=== PATIENT | male | born 1990 | race Caucasian/White ===

== ENCOUNTER 2022-07-27 00:13 | Emergency (ER) | payer BC ==
--- OUTSIDE RECORDS SUMMARY | 2022-07-27 00:19 | XMS REPORT | Continuity of Care Document ---
:1990 Author Organization [facility] t Address [address] [place] [address] Care Team Providers Name Role Phone RadhaFabby Attending Clinician Unavailable Physician, No Primary or Family Admitting Clinician Unavaila ble Payers Payer Name Policy Type Policy Number Effective Date Expiration Date S ource Problems This patient has no known problems. Allergies, Adverse Reactions, Alerts Allergy Allergy Status Severity Reaction(s) Onset Inactive Treating Comm ents Source Name Type Date Date Clinician No Known DA Active U [facility] Allergie 09-28 Clear s 00:00: Pereira 00 [facility] No Known DA Active U [facility] Contrast 10-08 Clear Allergie 00:00: Pereira s [facility] No Known DA Active U [facility] Drug 10-08 Clear Allergie 00:00: Pereira s [facility] No Known DA Active U 2006- [facility] Food - Clear Allergie 00:00: Pereira s [facility] No Known DA Active U 2006- [facility] Other - Clear Allergie 00:00: Pereira s [facility] Medications This patient has no known medications. Procedures This patient has no known procedures. Encounters Start End Encounter Admission Attending Care Care Encounter Source Date/Time Date/Time Type Type Clinicians Facility Department ID 2021-09-28 2021-09-28 Emergency EM Fabby Garcia [facility] PERS [id number] [facility] 06:55:00 08:05:00 40 [facility] Results Test Description Test Time Test Comments Results Result Comments Source CBC W/AUTO DIFF 2021-09-29 00:11:00 Test Item Value Reference Range Interpretation Comme nts WHITE BLOOD CELL (test code = WBC) 5.6 K/uL 3.5-11.0 N RED BLOOD CELL (test code = RBC) 4.85 M/uL 4.00-5.60 N HEMOGLOBIN (test code = HGB) 15.0 GM/DL 12.5-16.9 N HEMATOCRIT (test code = HCT) 43.0 % 40.0-54.0 N MEAN CELL VOLUME (test code = MCV) 88.7 fL 81.0-99.0 N MEAN CELL HGB (test code = MCH) 30.9 pg 27.0-31.0 N MEAN CELL HGB CONCETRATION (test code = MCHC) 34.9 GM/DL 33.0-37. 0 N RED CELL DISTRIBUTION WIDTH CV (test code = RDW) 13.7 % 11.5- 14.5 N PLATELET COUNT (test code = PLT) 148 K/mm3 150-400 L MEAN PLATELET VOLUME (test code = MPV) 12.9 FL 8.8-13.1 N NEUTROPHIL % (test code = NT%) 60.0 % 40.0-76.0 N LYMPHOCYTE % (test code = LY%) 34.8 % 15.0-40.0 N MIXED % (test code = MX%) 5.2 % 3.0-15.0 N NEUTROPHIL # (test code = NT#) 3.4 K/uL 1.8-7.6 N LYMPHOCYTE # (test code = LY#) 1.9 K/uL 1.0-3.8 N MIXED # (test code = MX#) 0.3 k/mm3 0.1-0.8 N DRUGS OF ABUSE [id number] 07:54:00 Test Item Value Reference Range Interpretation Comments UR COCAINE (test code = Negative NEGATIVE COCAU) UR CANNABINOIDS (test code Negative NEGATIVE = CANU) UR AMPHETAMINE (test code Negative NEGATIVE = AMPHU) UR BARBITURATE QUAL (test Negative NEGATIVE code = BARBQLU) UR BENZODIAZEPINE (test Negative NEGATIVE code = BENZU) UR OPIATES (test code = Negative NEGATIVE OPIU) URN TRICYCLICS (test code Negative NEGATIVE = TRICYCURN) URN METHADONE (test code = Negative NEGATIVE P erformed by METHAURN) certified opera tor at [facility] URN METHAMPHETAMINE (test Negative NEGATIVE code = METHAMPURN) UA DIPSTICK [id number] 07:43:00 Test Item Value Reference Range Interpretation Comments UA GLUCOSE DIPSTIC POC NEGATIVE NEGATIVE (test code = GLUUP) UA BILIRUBIN DIPSTICK NEGATIVE NEGATIVE (test code = BILU) UA KETONE DIPSTICK POC NEGATIVE NEGATIVE (test code = KETUP) UA SPECIFIC GRAVITY (test 1.010 1.005-1.030 N code = SGU) UA BLOOD DIPSTIC POC NEGATIVE NEGATIVE Perform ed by (test code = BLUP) certified chip bin operator at [facility] UA PH DIPSTIC POC (test 7 5.0-7.0 N code = PHUP) UA PROTEIN DIPSTICK POC NEGATIVE NEGATIVE (test code = DPROUP) UA UROBILINIOGEN QUAL NORMAL 0.2-1.0 (test code = UROQL) UA NITRITE DIPSTICK POC NEGATIVE Negative (test code = NITUP) UA LEUKOCYTE ESTERASE W Negative NEGATIVE REFLEX (test code = LEUUR) LIVER [id number] 07:31:00 Test Item Value Reference Range Interpretation Comments TOTAL PROTEIN (test code 6.6 GM/DL 5.0-8.0 N Per formed by = PROT) certified opera tor at [facility] ALBUMIN (test code = 3.9 g/dL 3.4-5.0 N ALB) BILIRUBIN TOTAL (test 0.9 MG/DL 0.0-1.0 N code = BILT) SGOT/AST (test code = 30 IUnit/L 15-37 N AST) SGPT/ALT (test code = 29 IUnit/L 30-65 L ALT) GAMMA GLUTAMYL 18 UNITS/L 5-85 N TRANSPEPTIDASE (test code = GGT) ALKALINE PHOSPHATASE 66 IUNIT/L 20-125 N TOTAL (test code = ALKP) AMYLASE (test code = 33 UNITS/L 25-125 N ADIEL) BASIC METABOLIC [id number] 07:24:00 Test Item Value Reference Range Interpretation Comments SODIUM (test code = NA/ABG) 143 MEQ/L 134-147 N POTASSIUM (test code = K/ABG) 3.7 MEQ/L 3.4-5.0 N CHLORIDE (test code = CL/ABG) 106 MEQ/L 100-108 N CREATININE ABG (test code = 1.2 mg/dL 0.8-1.3 N CREAABG) POC IONIZED CALCIUM (test code = 1.14 MMOL/L 1.12-1.32 N POCCA) POC GLUCOSE (test code = POCGLU) 105 MG/DL - CT HEAD/BRAIN W/O [id number] 00:00:00 [facility] 1990 Sex: MName: TRACI COLEMAN [facility] : 1990 Age/S: 31 / M [address] [facility] Unit #: [id number] Loc: [place] [address] Phys: Fabby Garcia MD Acct: [id number] Dis Date: Status: REG ER PHONE #: Exam Date: 09/28/2021 0725 FAX #: Reason: paresthesias EXAMS: CPT CODE: [id number] CT HEAD/BRAIN W/O CONT [id number] PROCEDURE INFORMATION: Exam: CT Head Without Contrast Exam date and time: 09/28/2021 7:15AM Age: 31 years old Clinical indication: Numbness / parasthesia; Bilateral; Additional info: Paresthesias TECHNIQUE: Imaging protocol: Computed tomography of the head without contrast. Radiation optimization: All CT scans at this facility use at least one of these dose optimization techniques: automated exposure control; mA and/or kV adjustment per patient size (includes targeted exams where dose ismatched to clinical indication); or iterative reconstruction. COMPARISON: No relevant prior studies available. FINDINGS: Brain: No cerebral mass effect, midline shift, acute edema, or acute hemorrhage.Cerebral ventricles: No ventriculomegaly. Paranasal sinuses: Bilateral maxillary sinus polyps or mucous retention cysts. Mastoid air cells: Visualized mastoid air cells are well aerated. Bones/joints: Unremarkable. No acute fracture. Soft tissues: Unremarkable. IMPRESSION: No acute intracranial process. at 0742 Reported and signed by: Ori Medrano M.D. CC: Fabby Garcia MD Technologist:Anjali Cohen, RT(R)(CT) CTDI: DLP: Trnscb Date/Time: 09/28/2021 (741) [email or web address] Orig Print D/T: S: 09/28/2021 (5042) PAGE 1 Signed Report
[2022-07-27] MEDS ORDERED: ASPIRIN 81 MG CHEWABLE TABLET ONE (02:20)
[2022-07-27 02:55] LABS: Absolute Lymphocytes (CBC) 2.2 K/uL (0.7-4.9); Hematocrit 45.3 % (39.6-49.0); Lymphocytes % 38.7 % (15.3-44.8); MCV 89.8 fL (80-100); MPV 9.6 fL (7.6-11.3); RBC Red Blood Cell Count 5.04 M/uL (4.33-5.43)
[2022-07-27 02:57] LABS: Protime INR 0.97
[2022-07-27 03:14] LABS: Bilirubin Direct 0.2 mg/dL (0-0.2); Bilirubin Total 1.1 mg/dL (0.2-1.0); Magnesium 2.5 mg/dL (1.6-2.4); Potassium 4.2 mmol/L (3.5-5.1); Troponin High Sensitivity 6.8 pg/mL (<58.9)
--- NOTE | 2022-07-27 03:45 | EDPHYS ---
Physician Documentation [facility] Name: Srinivas Alfaro Age: 32 yrs Sex: Male : 1990 Arrival Date: 07/27/2022 Time: 00:19 Bed 4 Private MD: ED Physician Hilario Goetz HPI: 07/27 01:10 This 32 yrs old Male presents to ER via Ambulatory with complaints of Chest Pain, cp Shortness Of Breath. 01:10 The patient or guardian reports chest pain that is located primarily in the anterior cp chest wall, left. 01:10 The pain does not radiate. Associated signs and symptoms: Pertinent positives: cp shortness of breath. The chest pain is described as sharp. Duration: The patient or guardian reports a single episode, that is still ongoing, but improving. 01:10 Severity of pain: in the emergency department the pain has improved moderately. cp Historical: - Allergies: 00:29 No Known Allergies; kl - PMHx: 00:29 None; kl - PSHx: 00:29 None; kl - Immunization history:: Adult Immunizations not up to date. - Social history:: Smoking status: Patient reports the use of cigarette tobacco products, smokes one pack cigarettes per day. ROS: 01:15 Constitutional: Negative for body aches, chills, fever, poor PO intake. cp 01:15 Eyes: Negative for injury, pain, redness, and discharge. cp 01:15 ENT: Negative for drainage from ear(s), ear pain, sore throat, difficulty swallowing, difficulty handling secretions. 01:15 Cardiovascular: Positive for chest pain, of the anterior aspect of left side chest, Negative for edema, palpitations. 01:15 Respiratory: Positive for shortness of breath, Negative for cough, wheezing. 01:15 Abdomen/GI: Negative for abdominal pain, nausea, vomiting, and diarrhea, constipation. 01:15 Back: Negative for pain at rest, pain with movement. 01:15 Neuro: Negative for altered mental status, dizziness, headache, syncope, weakness. 01:15 All other systems are negative. Exam: 00:45 ECG was reviewed by the Attending Physician. cp 01:20 Constitutional: The patient appears in no acute distress, alert, awake, comfortable, cp non-diaphoretic, non-toxic, well developed, well nourished. 01:20 Head/Face: Normocephalic, atraumatic. cp 01:20 Eyes: Periorbital structures: appear normal, Conjunctiva: normal, no exudate, no injection, Sclera: no appreciated abnormality, Lids and lashes: appear normal, bilaterally. 01:20 ENT: External ear(s): are unremarkable, Nose: is normal, Mouth: Lips: moist, Oral mucosa: pink and intact, moist, Posterior pharynx: is normal, airway is patent, no erythema, no exudate, Voice: is normal. 01:20 Neck: ROM/movement: is normal, is supple, without pain, no range of motions limitations. 01:20 Chest/axilla: Inspection: normal, Palpation: is normal, no crepitus, no tenderness. 01:20 Cardiovascular: Rate: normal, Rhythm: regular. 01:20 Respiratory: the patient does not display signs of respiratory distress, Respirations: normal, no use of accessory muscles, no retractions, labored breathing, is not present, Breath sounds: are clear throughout, no decreased breath sounds, no stridor, no wheezing. 01:20 Abdomen/GI: Inspection: abdomen appears normal, Palpation: abdomen is soft and non-tender, in all quadrants. 01:20 Back: pain, is absent, ROM is normal. 01:20 Neuro: Orientation: to person, place \T\ time. Mentation: is normal, Motor: moves all fours, strength is normal, Sensation: is normal. Vital Signs: 00:27 BP 118 / 80; Pulse 63; Resp 18; Temp 98(TE); Pulse Ox 97% on R/A; Weight 83.91 kg (R); kl Height 5 ft. 11 in. (180.34 cm); Pain 1/10; 02:31 BP 111 / 80; Pulse 60; Resp 16; Pulse Ox 98% on R/A; ll3 00:27 Body Mass Index 25.80 (83.91 kg, 180.34 cm) kl MDM: 00:45 Patient medically screened. cp 02:00 Differential diagnosis: acute myocardial infarction, acute pericarditis, anxiety, chest cp wall pain, pericarditis, pleurisy, pneumonia, pneumothorax, pulmonary embolus, thoracic aortic disection. 03:45 Data reviewed: vital signs, nurses notes, lab test result(s), EKG, radiologic studies, cp plain films. 03:45 Consideration of Admission/Observation Escalation of care including cp admission/observation considered. I considered the following discharge prescriptions or medication management in the emergency department Medications were administered in the Emergency Department. See MAR. Independent interpretation of the following test(s) in the Emergency Department EKG: See my EKG interpretation above X-Ray: My interpretation is chest xray negative for infiltrates. Test considered but Not performed: CT: chest for PE. Counseling: I had a detailed discussion with the patient and/or guardian regarding: the historical points, exam findings, and any diagnostic results supporting the discharge/admit diagnosis, lab results, radiology results, the need for outpatient follow up, a family practitioner, to return to the emergency department if symptoms worsen or persist or if there are any questions or concerns that arise at home. Response to treatment: the patient's symptoms have markedly improved after treatment, and as a result, I will discharge patient. Special discussion: Based on the patient's history, exam, and Dx evaluation, there is no indication for emergent intervention or inpatient Tx. It is understood by the patient/guardian that if the Sx's persist or worsen they need to return immediately for re-evaluation. 07/27 01:19 Order name: Basic Metabolic Panel cp 07/27 01:19 Order name: CBC with Diff cp 07/27 01:19 Order name: D-Dimer cp 07/27 01:19 Order name: LFT's cp 07/27 01:19 Order name: Magnesium cp 07/27 01:19 Order name: NT PRO-BNP cp 07/27 01:19 Order name: PT-INR cp 07/27 01:19 Order name: Troponin HS cp 07/27 02:57 Order name: Protime (+INR); Complete Time: 03:40 EDMS 07/27 02:57 Order name: D-Dimer; Complete Time: 03:40 EDMS 07/27 03:01 Order name: CBC with Automated Diff; Complete Time: 03:40 EDMS 07/27 03:15 Order name: Basic Metabolic Panel; Complete Time: 03:40 EDMS 07/27 03:40 Interpretation: Normal except: CL 111; GFR 89. cp 07/27 03:15 Order name: Liver (Hepatic) Function; Complete Time: 03:40 EDMS 07/27 03:40 Interpretation: Normal except: BILIT 1.1. cp 07/27 03:15 Order name: Troponin High Sensitivity; Complete Time: 03:40 EDMS 07/27 03:40 Interpretation: Troponin HS 6.8; Reviewed. cp 07/27 01:07 Order name: EKG; Complete Time: 01:07 cp 07/27 01:07 Order name: EKG - Nurse/Tech; Complete Time: 02:00 cp 07/27 01:19 Order name: XRAY Chest (1 view) cp 07/27 01:19 Order name: Cardiac monitoring; Complete Time: 02:30 cp 07/27 01:19 Order name: IV Saline Lock; Complete Time: 02:30 cp 07/27 01:19 Order name: Labs collected and sent; Complete Time: 02:30 cp 07/27 01:19 Order name: O2 Per Protocol; Complete Time: 02:30 cp 07/27 01:19 Order name: O2 Sat Monitoring; Complete Time: 02:30 cp 07/27 03:15 Order name: NT PRO-BNP; Complete Time: 03:40 EDMS 07/27 03:15 Order name: Magnesium; Complete Time: 03:40 EDMS 07/27 03:40 Interpretation: MG 2.5; Reviewed. cp EC:45 Rate is 68 beats/min. Rhythm is regular. [place] interval is normal. QRS interval is cp prolonged at 106 msec. QT interval is normal. T waves are Inverted in leads III, aVR. Interpreted by me. Reviewed by me. Administered Medications: 02:30 Not Given (Physician Discretion): Aspirin Chewable Tablet 324 mg PO once; 81 mg tablets ll3 x 4 02:30 Drug: Aspirin 162 mg Route: PO; ll3 Disposition Summary: 07/27/22 03:45 Discharge Ordered Location: Home cp Problem: new cp Symptoms: have improved cp Condition: Stable cp Diagnosis - Chest pain, unspecified cp Followup: cp - With: Private Physician - When: 2 - 3 days - Reason: Recheck today's complaints Discharge Instructions: - Discharge Summary Sheet cp - Nonspecific Chest Pain, Adult cp - Aspirin and Your Heart cp Forms: - Medication Reconciliation Form cp - Thank You Letter cp - Antibiotic Education cp - Prescription Opioid Use cp Prescriptions: - Diclofenac Sodium 75 mg Oral Tablet Sustained Release - take 1 tablet by ORAL route 2 times per day; 30 tablet; Refills: 0, Product cp Selection Permitted Signatures: Dispatcher [employer] Perla Cast, RN RN Hilario Gong PA PA cp Loubet, Lynsea RN RN ll3
--- NOTE | 2022-07-27 03:45 | ER ---
Nurse's Notes [facility] Name: Srinivas Alfaro Age: 32 yrs Sex: Male : 1990 Arrival Date: 07/27/2022 Time: 00:19 Bed 4 Private MD: Diagnosis: Chest pain, unspecified Presentation: 07/27 00:27 Chief complaint: Patient states: woke up with sharp pain to upper left side of chest kl with some SOB reports pain decreased at this time 1. Coronavirus screen: Vaccine status: Patient reports being unvaccinated. Initial Sepsis Screen: Does the patient meet any 2 criteria? No. Patient's initial sepsis screen is negative. Does the patient have a suspected source of infection? No. Patient's initial sepsis screen is negative. Risk Assessment: Do you want to hurt yourself or someone else? Patient reports no desire to harm self or others. Onset of symptoms. 00:27 Method Of Arrival: Ambulatory kl 00:27 Acuity: JANAY 3 kl 04:11 Ebola Screen: Patient negative for fever greater than or equal to 101.5 degrees kl Fahrenheit, and additional compatible Ebola Virus Disease symptoms. Triage Assessment: 00:29 General: Appears in no apparent distress. comfortable, Behavior is calm, cooperative. kl Pain: Complains of pain in left clavicle and anterior aspect of left upper chest Pain currently is 1 out of 10 on a pain scale. at worst was 6 out of 10 on a pain scale. Cardiovascular: Reports chest pain, Heart tones S1 S2. Historical: - Allergies: 00:29 No Known Allergies; kl - PMHx: 00:29 None; kl - PSHx: 00:29 None; kl - Immunization history:: Adult Immunizations not up to date. - Social history:: Smoking status: Patient reports the use of cigarette tobacco products, smokes one pack cigarettes per day. Screenin:31 [facility] ED Fall Risk Assessment (Adult) History of falling in the last 3 months, ll3 including since admission No falls in past 3 months (0 pts) Confusion or Disorientation No (0 pts) Intoxicated or Sedated No (0 pts) Impaired Gait No (0 pts) Mobility Assist Device Used No (0 pt) Altered Elimination No (0 pt) Score/Fall Risk Level 0 - 2 = Low Risk Oriented to surroundings, Maintained a safe environment, Educated pt \T\ family on fall prevention, incl call for assistance when getting out of bed. Abuse screen: Denies threats or abuse. Denies injuries from another. Nutritional screening: No deficits noted. Tuberculosis screening: No symptoms or risk factors identified. Assessment: 02:31 General: Appears in no apparent distress. uncomfortable, Behavior is calm, cooperative. ll3 Pain: Complains of pain in anterior aspect of left upper chest Pain radiates to left clavicle Pain currently is 1 out of 10 on a pain scale. at worst was 7 out of 10 on a pain scale. Quality of pain is described as pressure, Pain began 2-3 days ago. Is continuous. Cardiovascular: Patient's skin is warm and dry. Rhythm is sinus rhythm Chest pain is described as mild, quality is pressure, is located in left anterior chest wall began 2-3 days ago. Respiratory: Reports shortness of breath Respiratory effort is even, unlabored, Respiratory pattern is regular, symmetrical. Derm: Skin is pink, warm \T\ dry. 04:10 Reassessment: Patient appears in no apparent distress at this time. Patient and/or kl family updated on plan of care and expected duration. Pain level reassessed. Patient is alert, oriented x 3, equal unlabored respirations, skin warm/dry/pink. Patient states feeling better. Patient states symptoms have improved. Vital Signs: 00:27 BP 118 / 80; Pulse 63; Resp 18; Temp 98(TE); Pulse Ox 97% on R/A; Weight 83.91 kg (R); Height 5 ft. 11 in. (180.34 cm); Pain 06/22; 02:31 BP 111 / 80; Pulse 60; Resp 16; Pulse Ox 98% on R/A; ll3 00:27 Body Mass Index 25.80 (83.91 kg, 180.34 cm) ED Course: 00:19 Patient arrived in ED. [email or web address] 00:29 Triage completed. 00:45 Hilario Maldonado PA is PHCP. 00:45 Hilario Goetz MD is Attending Physician. 02:30 Initial lab(s) drawn, by me, sent to lab. Inserted saline lock: 22 gauge in right ll3 antecubital area, using aseptic technique. Blood collected. Patient maintains SpO2 saturation greater than 95% on room air. 04:10 No provider procedures requiring assistance completed. IV discontinued, intact, kl bleeding controlled, No redness/swelling at site. Pressure dressing applied. 04:10 Patient has correct armband on for positive identification. Client placed on continuous kl cardiac and pulse oximetry monitoring. NIBP monitoring applied. 04:11 EKG completed in triage. Results shown to MD. av Administered Medications: 02:30 Not Given (Physician Discretion): Aspirin Chewable Tablet 324 mg PO once; 81 mg tablets ll3 x 4 02:30 Drug: Aspirin 162 mg Route: PO; ll3 Medication: 02:31 VIS not applicable for this client. ll3 Outcome: 03:45 Discharge ordered by MD. greg 04:11 Discharged to home ambulatory. kl 04:11 Condition: good 04:11 Discharge instructions given to patient, Instructed on discharge instructions, follow up and referral plans. medication usage, Demonstrated understanding of instructions, follow-up care, medications, Prescriptions given X 1. 04:11 Patient left the ED. Signatures: Perla Payan RN RN Hilario Gong PA PA cp Jeffries, Jennifer [email or web address] Hever Chairez RN RN ll3
[2022-07-27 04:42] VITALS: TEMP 98
[2022-07-27 04:48] VITALS: BP 111/80; O2SAT 98
--- NOTE | 2022-07-27 17:09 | EKG ---
Test Date: 2022-07-27 Test Time: 00:38:32 Limited Radiology Technician: MONTY MEASUREMENT RESULTS: Intervals: Rate: 68 AR: 170 QRSD: 106 QT: 400 QTc: 425 Beaman: P: 65 AR: 170 QRS: 35 T: 18 INTERPRETIVE STATEMENTS: Normal sinus rhythm with sinus arrhythmia Normal ECG Electronically Signed On 07-27-22 17:08:22 AMMONIUM SULFATE OPERATOR by Emigdio Jamison
== END 2022-07-27 04:11 | disposition home or self-care (01) ==
LOC: ER 00:13
DX: R07.89 Other chest pain (principal); F17.210 Nicotine dependence, cigarettes, uncomplicated
CPT/HCPCS: 36415; 80048; 80076; 83735; 83880; 84484; 85025; 85379; 85610; 93005

== ENCOUNTER 2023-12-10 04:36 | Emergency (ER) | payer BC ==
--- OUTSIDE RECORDS SUMMARY | 2023-12-10 04:39 | XMS REPORT | Continuity of Care Document ---
Author Name Unknown Address [address] [facility] [address] [place] [address] [facility] thconnect Address [address] [facility] 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 Name Role Phone PCP, PATIENT DOES NOT HAVE A Primary Care Physic vicki Unavailable Tyrell Ennis Attending Clinician [phone] TYRELL JAMISON Attending Clinician Unavailable Unknown, Attending Attending Clinician Unavailab Fabby Cody Attending Clinician Unavailable Physician, No Primary or Family Admitting Clinic vicki Unavailable Payers Payer Name Policy Type Policy Number Effective Date Expirati on Date Source Allergies, Adverse Reactions, Alerts Allergy Name Allergy Type Status Severity Reaction(s) Onset Date Inactive Date Treating Clinician Comments Source No Known Allergie s DA Active U 09-28 00:00: 00 [facility] No Known Contrast Allergie s DA Active U 10-08 00:00: 00 [facility] No Known Drug Allergie s DA Active U 10-08 00:00: 00 [facility] No Known Food Allergie s DA Active U 10-08 00:00: 00 [facility] No Known Other Allergie s DA Active U 10-08 00:00: 00 [facility] NO KNOWN ALLERGIE S Drug Class Active [facility] Social History Social Habit Start Date Stop Date Quantity Comments Source History of tobacco use Snuff User [facility] of Social function 2018-10-28 00:00:00 2018-10-28 00:00:00 [facility] Tobacco use and exposure 2018-10-28 00:00:00 2018-10-28 00:00:00 User of smokeless tobacco [facility] Sex assigned at 1990 00:00:00 1990 00:00:00 [facility] Smoking Status Start Date Stop Date Source Never smoked tobacco [facility] Medications Ordered Medication Name Filled Medication Name Start Date Stop Date Current Medication? Ordering Clinician Indication Dosage Frequency Signature (SIG) Comments Components Source ibuprofen (IBU) tablet 800 mg 12-05 22:30: 00 12-05 21:53 :00 No [id number] 800mg 800 mg, Oral, ONCE, 1 dose, On Tue12/06/23 at 1730, Routine [facility] albuterol 90 mcg/actuati on inhaler 12-05 00:00: 00 Yes [id number] 2{puff} Inhale 2 Puffs every 6 (six) hours as needed for Wheezing. [facility] promethazin e-dextromet horphan 6.25-15 mg/5 mL syrup 12-05 00:00: 00 12-16 04:59 :00 Yes [id number] 10mL Take 10 mL by mouth 4 (four) times daily for 10 days. [facility] Vital Signs Vital Name Observation Time Observation Value Comments S alecia Systolic blood pressure 2023-12-06 21:24:00 125 mm[Hg] [facility] Diastolic blood pressure 2023-12-06 21:24:00 76 mm[Hg] [facility] Heart rate 2023-12-06 21:24:00 102 /min [facility] Body temperature 2023-12-06 21:24:00 38.33 Laurie [facility] Respiratory rate 2023-12-06 21:24:00 17 /min [facility] Body height 2023-12-06 21:24:00 180.3 cm [facility] Body weight 2023-12-06 21:24:00 85.503 kg [facility] BMI 2023-12-06 21:24:00 26.29 kg/m2 [facility] Oxygen saturation in Arterial blood by Pulse oximetry 2023-12-06 21:24:00 97 /min [place] [facility] Procedures Procedure Date / Time Performed Performing Clinicia n Source XR CHEST 2 VW 2023-12-06 22:06:45 Tyrell Jamison [facility] POCT SARS-COV-2 ANTIGEN (BINAX NOW) 2023-12-06 21:46:00 Tyrell Jamison [facility] Encounters Start Date/Time End Date/Time Encounter Type Admission Type Attending Clinicians Care Facility Care Department Encounter ID Source 2023-12-06 16:45:14 2023-12-06 23:59:00 Hospital Encounter Tyrell Jamison [facility] [id number] [facility] 2023-12-06 16:00:00 2023-12-06 17:01:02 Outpatient R TYRELL JAMISON [facility] [id number] [facility] 2023-12-06 16:00:00 2023-12-06 16:20:00 Urgent Care Tyrell Jamison, Attending [facility] [id number] [facility] 2021-09-28 06:55:00 2021-09-28 08:05:00 Emergency EM [employer] [facility] [id number] 40 [facility] Results Test Description Test Time Test Comments Results Resul t Comments Source XR CHEST 2 VW 2023-11-13 5 22:19:15 EXAM:XR CHEST 2 VW HISTORY: 33 years-old Male; Indication for study: cough x 7 months andfever started today COMPARISON: None TECHNIQUE: Frontal and lateral chest radiographs were obtained. FINDINGS: Lungs/Pleura: Adequate lung volume. The lungs are clear with no focalconsolidation. There is no pleural effusion or pneumothorax. Heart/Mediastinum: The cardiomediastinal silhouette is normal. ? Bones and soft tissues: No acute abnormality detected. [facility] [id number] 00:11:00* Test Item Value Reference Range Interpretation Comme [...] pg 27.0-31.0 N MEAN CELL HGB CONCETRATION ( test code = MCHC) 34.9 GM/DL 33.0-37.0 N RED CELL DISTRIBUTION WIDTH CV (test code = RDW) 13.7 % 11.5-14.5 N PLATELET COUNT (test code = PLT) 148 K/mm3 150-400 L MEAN PLATELET VOLUME (test c ode = MPV) 12.9 FL 8.8-13.1 N NEUTROPHIL [...] 0.3 k/mm3 0.1-0.8 N DRUGS OF ABUSE [id number] 07:54:00* Test Item Value Reference Range Interpretation Comme nts UR COCAINE (test code = COCAU) Negative NEGATIVE UR CANNABINOIDS (test code = CANU) Negative NEGATIVE UR AMPHETAMINE (test code = AMPHU) Negative NEGATIVE UR BARBITURATE QUAL (test code = BARBQLU) Negative NEGATIVE UR BENZODIAZEPINE (test code = BENZU) Negative NEGATIVE UR OPIATES (test code = OPIU) Negative NEGATIVE URN TRICYCLICS (test code = TRICYCURN) Negative NEGATIVE URN METHADONE (test code = METHAURN) Negative NEGATIVE Performed by certified die stamping press operator at [facility] URN METHAMPHETAMINE (test code = METHAMPURN) Negative NEGATIVE UA DIPSTICK [id number] 07:43:00* Test Item Value Reference Range Interpretation Comme nts UA GLUCOSE DIPSTIC POC (test code = GLUUP) NEGATIVE NEGATIVE UA BILIRUBIN DIPSTICK (test code = BILU) NEGATIVE NEGATIVE UA KETONE DIPSTICK POC (test code = KETUP) NEGATIVE NEGATIVE UA SPECIFIC GRAVITY (test code = SGU) 1.010 1.005-1.030 N UA BLOOD DIPSTIC POC (test code = BLUP) NEGATIVE NEGATIVE Performed by certified die stamping press operator at [facility] UA PH DIPSTIC POC (test code = PHUP) 7 5.0-7.0 N UA PROTEIN DIPSTICK POC (test code = DPROUP) NEGATIVE NEGATIVE UA UROBILINIOGEN QUAL (test code = UROQL) NORMAL 0.2-1.0 UA NITRITE DIPSTICK POC (test code = NITUP) NEGATIVE Negative UA LEUKOCYTE ESTERASE W REFLEX (test code = LEUUR) Negative NEGATIVE LIVER [id number] 07:31:00* Test Item Value Reference Range Interpretation Comme nts TOTAL PROTEIN (test code = PROT) 6.6 GM/DL 5.0-8.0 N Performed by certified die stamping press operator at [facility] ALBUMIN (test code = ALB) 3.9 g/dL 3.4-5.0 N BILIRUBIN TOTAL (test code = BILT) 0.9 MG/DL 0.0-1.0 N SGOT/AST (test code = AST) 30 IUnit/L 15-37 N SGPT/ALT (test code = ALT) 29 IUnit/L 30-65 L GAMMA GLUTAMYL TRANSPEPTIDASE (test code = GGT) 18 UNITS/L 5-85 N ALKALINE PHOSPHATASE TOTAL (test code = ALKP) 66 IUNIT/L 20-125 N AMYLASE (test code = ADIEL) 33 UNITS/L 25-125 N BASIC METABOLIC [id number] 07:24:00* Test Item Value Reference Range Interpretation Comme nts SODIUM (test code = NA/ABG) 143 MEQ/L 134-147 N POTASSIUM (test code = K/ABG) 3.7 MEQ/L 3.4-5.0 N CHLORIDE (test code = CL/ABG) 106 MEQ/L 100-108 N CREATININE ABG (test code = CREAABG) 1.2 mg/dL 0.8-1.3 N POC IONIZED CALCIUM (test co de = POCCA) 1.14 MMOL/L 1.12-1.32 N POC GLUCOSE (test code = POCGLU) 105 MG/DL - CT HEAD/BRAIN W/O [id number] 00:00:00 [facility] : 1990 Sex: M Name: TRACI COLEMAN FSED : 1990 Age/S: 31 / M [address] [facility] Unit #: [id number] Loc: [place] [address] Phys: Fabby Garcia MD Acct: [id number] Dis Date: Status: REG ER PHONE #: Exam Date: 09/28/2021 8922 FAX #: Reason: paresthesias EXAMS: CPT CODE: [id number] CT HEAD/BRAIN W/O CONT 52555 PROCEDURE INFORMATION: Exam: CT Head Without Contrast Exam date and time: 09/28/2021 7:15 AM Age: 31 years old Clinical indication: Numbness / parasthesia; Bilateral; Additional info:Paresthesias TECHNIQUE: Imaging protocol: Computed tomography of the head without contrast. Radiation optimization: All CT scans at this facility use at least one of these dose optimization techniques: automated exposure control; mA and/or kV adjustment per patient size (includes targeted exams where dose is matched to clinical indication); or iterative reconstruction. COMPARISON: No relevant prior studies available. FINDINGS: Brain: No cerebral mass effect, midline shift, acute edema, or acutehemorrhage. Cerebral ventricles: No ventriculomegaly. Paranasal sinuses: Bilateral maxillary sinus polyps or mucous retention cysts. Mastoid air cells: Visualized mastoid air cells are well aerated. Bones/joints: Unremarkable. No acute fracture. Soft tissues: Unremarkable. IMPRESSION: No acute intracranial process. at 0742 Reported and signed by: Ori Medrano M.D. CC: Fabby Garcia MD Technologist:Anjali Cohen, RT(R)(CT) CTDI: DLP: Trnscb Date/Time: 09/28/2021 (741) [id number] Orig Print D/T: S: 09/28/2021 (42) PAGE 1Signed Report Notes Date/Time Note Provider Source 2021-09-28 07:20:00 [id number]:20:00 [facility] ([facility])EMERGENCY PROVIDER REPORTREPORT#:[id number] REPORT STATUS: SignedDATE:09/28/21 TIME: 719 PATIENT: TRACI COLEMAN UNIT #: [id number]#: [id number] ROOM/BED:AGE: 31 SEX: M PCP PHYS: No Primary or Family PhysicianSERVICE AUTHOR: Fabby Garcia MD * ALL edits or amendments must be made on the electronic/computer document * HPI-General Illness GeneralConfirmed Patient YesInitial Greet Date/Time 09/28/21 0708PCPno PMD PresentationChief Complaint Paresthesias Free Text HPI NotesFree Text HPI Notes31 yo M w/no PMH p/w paresthesias. 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 He notes the presence of tingling all over his body. His symptoms began while driving home from his overnight shift at work, and he denies hyperventilating prior to onset. He also denies unilateral limb weakness, vision/speech changes, fever, chest pain, shortness of breath, cough, abdominal pain, nausea/vomiting, melena, hematuria, hematochezia, lower extremity swelling or calf pain. Review of Systems ROS StatementsAll systems rev neg except as marked. Past Medical History - AdultStated Complaint tingling all over arms legs face , light headedAllergiesCoded Allergies:No Known Allergies (09/28/21) Home MedicationsReported Medications[zoloft ] Calculated Suicide Risk (nurs) No riskPt reports no significant: Past medical historyAlcohol Use Alcohol use (rare EtOH use)Drug Use Denies recreational drugsSmoking status: Smoking status for patients 13 years old or older: Current every day smoker (1 pack per day) Physical Exam Vital SignsVital SignsFirst Documented: Result Date Time Pulse Ox 98 09/28 0658 B/P 128/80 09/28 0658 B/P Mean 96 09/28 0658 O2 Delivery Room air 09/28 0658 Temp 36.7 09/28 0658 Pulse 77 09/28 0658 Resp 16 09/28 0658 Last Documented: Result Date Time Pulse Ox 98 09/28 0658 B/P 128/80 09/28 0658 B/P Mean 96 09/28 0658 O2 Delivery Room air 09/28 0658 Temp 36.7 09/28 0658 Pulse 77 09/28 0658 Resp 16 09/28 0658 Review of Vital Signs Reviewed Physical ExamGeneral/Const General/Const Awake, Alert, No acute distress Text/Dict NotesAfebrile, lying comfortably on stretcher in NAD, nontoxic, appears well clinicallyMS Head Head Atraumatic, NormocephalicEars/Nose/Throat Ears/Nose/Throat Airway patentMS Neck Neck Supple, No swellingResp/Chest Respiratory/Chest Breath sounds NL, No respiratory distress, No rales, No rhonchi, No wheezingCardiovascular Cardiovascular Heart rate NL, Regular rhythm, Heart sounds NLAbdomen/GI Abdomen/GI Soft, Non-tender, No distentionMS Back Back No midline vertebral tend, No CVA tendernessMS Lower Extrem Lower Ext/Pelvis/MS No swelling, Non-tenderSkin Skin Warm, DryNeurologic Neurologic Oriented X3, Speech NL Text/Dict Notes5/5 motor and sensory function in all extremities, claim examiner intact with the exceptionof R V1 which has diminished sensation, patient states this has been present since he had shingles in that locationPsychiatric Psychiatric Affect NL, Mood NL Interpretation Diagnostics Lab Results InterpretationResultsLaboratory Tests: 09/28 09/28 09/28 09/28 0743 0739 0719 0718 Blood Gas Sodium (134 - 147 MEQ/L) 143 Potassium (3.4 - 5.0 MEQ/L) 3.7 Chloride (100 - 108 MEQ/L) 106 Ionized Calcium (1.12 - 1.32 MMOL/L) 1.14 Chemistry POC Creatinine (0.8 - 1.3 mg/dL) 1.2 POC Glucose (mg/dL) (MG/DL) 105 Total Bilirubin (0.0 - 1.0 MG/DL) 0.9 GGT (5 - 85 UNITS/L) 18 AST (15 - 37 IUnit/L) 30 ALT (30 - 65 IUnit/L) 29 L Total Alk Phosphatase (20 - 125 IUNIT/L) 66 Total Protein (5.0 - 8.0 GM/DL) 6.6 Albumin (3.4 - 5.0 g/dL) 3.9 Amylase (25 - 125 UNITS/L) 33 Toxicology Ur Opiates, Quant (NEGATIVE) Negative Urine Methadone Screen (NEGATIVE) Negative Ur Barbiturates, Qual (NEGATIVE) Negative U Tricyclic Antidepress (NEGATIVE) Negative Ur Amphetamines Screen (NEGATIVE) Negative U Methamphetamines Scrn (NEGATIVE) Negative U Benzodiazepines Scrn (NEGATIVE) Negative Urine Cocaine Screen (NEGATIVE) Negative Urine Cannabinoids (NEGATIVE) Negative Urines POC Urine pH (5.0 - 7.0) 7 Ur Specific Rogers (1.005 - 1.030) 1.010 POC Urine Protein (NEGATIVE) NEGATIVE POC Ur Glucose (UA) (NEGATIVE) NEGATIVE POC Urine Ketones (NEGATIVE) NEGATIVE POC Urine Blood (NEGATIVE) NEGATIVE POC Urine Nitrite (Negative) NEGATIVE Urine Bilirubin (NEGATIVE) NEGATIVE POC Urine Urobilinogen (0.2 - 1.0) NORMAL POC U Leukocyte Esteras (NEGATIVE) Negative Recent Impressions:CAT SCAN - CT HEAD/BRAIN W/O CONT 09/28 724 Report Impression - Status: SIGNED Entered: 09/28/2021741 IMPRESSION: No acute intracranial process. Impression By: Britney Medrano M.D. Lab Imaging StatementLaboratory radiographic studies reviewed and considered in the medical decision-making. Point of Care TestingUrinalysis Interpretation No UTIPulse Oximetry Pulse Ox % 98 On: Room air Interpretation Interpreted by me, Pulse oximetry normal Time 0658 ECG #1 InterpretationText/Dict NoteDate: 09/28/2021Time: 0659Interpreted by and reviewed by me (ED physician) NSR, rate 69, nl axis, incomplete RBBB, no STEMI Free Text I D NotesFree Text I D NotesCAT SCAN - CT HEAD/BRAIN W/O CONT 09/28 724 Report Impression - Status: SIGNED Entered: 09/28/2021741 IMPRESSION: No acute intracranial process. Impression By: Britney Medrano M.D. Re-Evaluation MDM Free Text MDM NotesFree Text MDM NotesOrthostats: Lying - 128/80, 61Sitting - 120/71, 64Standing - 118/68, 69 Re-Evaluation/Progress #1Text/Dict NotePatient re-eval, he remains well-appearing. Discussed results and plan to discharge to home with a referral for PMD follow-up. The patient noted he actually resides in [place], and therefore he will find a primary care physician on his own. Orthostats are pending at this time, will follow up on them and proceed accordingly. Patient expressed understanding and agreement with the plan.Time of Re-Eval 0749 ED CourseMedication(s) OrderedMedication(s) Ordered:Electrolytic, Caloric, And David Sig/Sheela Start time Last Medication Dose Route Stop Time Status Admin Sodium Chloride 0 ASDIR PRN 04/18 0715 AC IV 09/29 06 Patient Discharge Departure Vital Signs/ConditionVital SignsFirst Documented: Result Date Time Pulse Ox 98 09/28 0658 B/P 128/80 / 0658 B/P Mean 96 09/28 0658 O2 Delivery Room air 09/28 0658 Temp 36.7 09/28 0658 Pulse 77 09/28 0658 Resp 16 09/28 0658 Last Documented: Result Date Time Pulse Ox 98 09/28 0658 B/P 128/80 09/28 0658 B/P Mean 96 09/28 0658 O2 Delivery Room air 09/28 0658 Temp 36.7 09/28 0658 Pulse 77 09/28 0658 Resp 16 09/28 0658 All vital signs available at the time of this entry have been reviewed. Condition Stable Clinical ImpressionClinical ImpressionPrimary Impression: Paresthesias Disposition DecisionDischarge )( Discharged to Home Yes )( Time 0800 )( Date 09/28/21 Discharge/Care PlanCounseled Regarding Diagnosis, Lab results, Imaging studies, Need for follow-up,When to return to EDPatient Instructions ED ParaesthesiasAdditional InstructionsYou were seen in the ER for your tingling. While you were here, we tested your blood and urine, performed a CT scan of your brain performed an EKG. Your results showed you do not have a urinary tract infection, electrolyte issues or masses/bleeding in your brain. Follow-up with the primary care physician we have referred you to at the 1st available appointment so that you may establish a regular source of primary care. Return to the ER for any alarming symptoms.ReferralsReferral: Dr. Ronnie Morrissey Jr., MD Address: [address] [place] [phone] at [phone] #:[id number] OF REPORTEDEmergency department [id number]:20:00G.[id number] ilable for patient [id number]:09:49 [facility]
[2023-12-10] MEDS ORDERED: MAGNES/ALUMIN/SIMET 30ML UCUP ONE (05:04)
[2023-12-10] MEDS ORDERED: FAMOTIDINE 20 MG/2 ML VIAL IV ONE (05:04)
[2023-12-10] MEDS ORDERED: LIDOCAINE VISCOUS 2% 10ML ORAL SOLN ONE (05:04)
[2023-12-10] MEDS ORDERED: NA CHLORIDE 0.9% 1,000 ML ONE (05:04)
[2023-12-10 05:26] LABS: Absolute Eosinophils 0.1 K/uL (0-0.5); Absolute Monocytes 0.8 K/uL (0.1-1.3); Absolute Neutrophil 7.4 K/uL (1.8-8.0); Basophils % 0.4 % (0-1.3); Eosinophils % 1.3 % (0-4.4); Hematocrit 42.5 % (39.6-49.0); Hemoglobin 14.4 g/dL (13.6-17.9); Lymphocytes % 11.1 % (15.3-44.8); MCHC 33.9 g/dL (32.0-36.0); MCV 88.4 fL (80-100); MPV 9.8 fL (7.6-11.3); Neutrophils % 79.2 % (41.7-73.7); Nucleated Red Blood Cells % 0.1 % (0-0); Platelets 165 thou/uL (152-406); RBC Red Blood Cell Count 4.81 M/uL (4.33-5.43); Red Cell Distribution Width 13.6 % (12.1-15.2)
[2023-12-10 05:27] LABS: PT Prothrombin Time 12.2 SECONDS (9.4-12.5); Protime INR 1.11
[2023-12-10 05:43] LABS: Albumin 3.5 g/dL (3.4-5.0); Albumin/Globulin Ratio 0.9 (1.1-1.8); Anion Gap 10.2 mEq/L (5.0-15.0); Bilirubin Direct 0.3 mg/dL (0-0.2); Bilirubin Total 1.3 mg/dL (0.2-1.0); Magnesium 2.1 mg/dL (1.6-2.4); Potassium 3.2 mEq/L (3.5-5.1); Protein, Total 7.5 g/dL (6.4-8.2)
[2023-12-10 05:45] LABS: Troponin High Sensitivity 1987.2 pg/mL (<58.9)
[2023-12-10] MEDS ORDERED: CLOPIDOGREL 75 MG TABLET ONE (05:48)
[2023-12-10] MEDS ORDERED: ASPIRIN 81 MG CHEWABLE TABLET ONE (05:48)
[2023-12-10] MEDS ORDERED: HEPARIN/D5W 25,000 UNIT/500 ML BAG IV ONE (05:49)
[2023-12-10] MEDS ORDERED: HEPARIN 5000 UNIT/ML 1 ML VIAL ONE (05:49)
--- NOTE | 2023-12-10 05:50 | ER ---
Nurse's Notes [facility] Name: Srinivas Alfaro Age: 33 yrs Sex: Male : 1990 Arrival Date: 12/10/2023 Time: 04:36 Bed 3 Private MD: Diagnosis: Chest pain on breathing;Non ST elevation MO;Pneumonia due to other specified bacteria-left lower lobe;Hypokalemia Presentation: 12/09 04:40 Chief complaint: Patient states: Had a cough for 7 months. I went to [facility] and vc1 they gave me promethazine and an albuterol inhaler. I have been taking them an now I feel worse, like my chest is on fire and my throat is closing. 04:40 Method Of Arrival: Ambulatory vc1 04:40 Coronavirus screen: Vaccine status: Patient reports being unvaccinated. Client denies vc1 travel out of the [place] in the last 14 days. cough unrelated to allergies, Client presents with at least one sign or symptom that may indicate coronavirus-19. Ebola Screen: Patient negative for fever greater than or equal to 101.5 degrees Fahrenheit, and additional compatible Ebola Virus Disease symptoms Patient denies exposure to infectious person. Patient denies travel to an Ebola-affected area in the 21 days before illness onset. No symptoms or risks identified at this time. Initial Sepsis Screen: Does the patient meet any 2 criteria? No. Patient's initial sepsis screen is negative. Does the patient have a suspected source of infection? No. Patient's initial sepsis screen is negative. Risk Assessment: Do you want to hurt yourself or someone else? Patient reports no desire to harm self or others. Onset of symptoms is unknown. 04:40 Acuity: JANAY 3 vc1 Historical: - Allergies: 04:48 No Known Allergies; bm8 - Home Meds: 04:48 None [Active]; bm8 - PMHx: 04:48 None; bm8 - PSHx: 04:48 None; bm8 - Immunization history:: Adult Immunizations unknown. - Infectious Disease History:: Denies. - Social history:: Smoking status: Patient denies any tobacco usage or history of. Screenin:48 [facility] ED Fall Risk Assessment (Adult) History of falling in the last 3 months, bm8 including since admission No falls in past 3 months (0 pts) Confusion or Disorientation No (0 pts) Intoxicated or Sedated No (0 pts) Impaired Gait No (0 pts) Mobility Assist Device Used No (0 pt) Altered Elimination No (0 pt) Score/Fall Risk Level 0 - 2 = Low Risk Oriented to surroundings, Maintained a safe environment, Educated pt \\T\\ family on fall prevention, incl call for assistance when getting out of bed, Assessed \\T\\ reinforced patient's understanding of fall precautions. Abuse screen: Denies threats or abuse. Nutritional screening: No deficits noted. Tuberculosis screening: No symptoms or risk factors identified. Assessment: 04:44 General: Appears in no apparent distress. comfortable, Behavior is calm, cooperative, bm8 appropriate for age. Pain: Complains of pain in LUNGS Pain does not radiate. Pain currently is 4 out of 10 on a pain scale. Quality of pain is described as burning. Neuro: No deficits noted. Level of Consciousness is awake, alert, obeys commands, Oriented to person, place, time, situation, Appropriate for age. Cardiovascular: Heart tones S1 S2 present Capillary refill < 3 seconds Patient's skin is warm and dry. Rhythm is sinus rhythm. Respiratory: Reports cough that is non-productive, since "SEVERAL MONTHS" Airway is patent Trachea midline Respiratory effort is even, unlabored, Breath sounds are diminished in left lower lobe, right lower lobe, left posterior lower lobe and right posterior lower lobe the patient has mild shortness of breath. GI: No deficits noted. No signs and/or symptoms were reported involving the gastrointestinal system. : No deficits noted. No signs and/or symptoms were reported regarding the genitourinary system. EENT: No deficits noted. No signs and/or symptoms were reported regarding the EENT system. Derm: No deficits noted. No signs and/or symptoms reported regarding the dermatologic system. Musculoskeletal: No deficits noted. No signs and/or symptoms reported regarding the musculoskeletal system. 06:33 General: Appears in no apparent distress. comfortable, Behavior is calm, cooperative, bm8 appropriate for age. Pain: Complains of pain in chest Pain does not radiate. Pain currently is 0 out of 10 on a pain scale. Quality of pain is described as burning. Neuro: No deficits noted. Level of Consciousness is awake, alert, obeys commands, Oriented to person, place, time, situation, Appropriate for age. Cardiovascular: Reports Burning lungs Capillary refill < 3 seconds Patient's skin is warm and dry. Rhythm is sinus rhythm. Respiratory: Airway is patent Trachea midline Respiratory effort is even, unlabored, Breath sounds are diminished in left lower lobe and left posterior lower lobe the patient has mild shortness of breath. 06:53 Reassessment: Patient appears in no apparent distress at this time. Patient and/or bm8 family updated on plan of care and expected duration. Pain level reassessed. Patient is alert, oriented x 3, equal unlabored respirations, skin warm/dry/pink. report given to PATY Gomez \\T\\ [facility]. Vital Signs: 04:40 BP 122 / 81; Pulse 93; Resp 20; Temp 98.8; Pulse Ox 95% ; Weight 81.5 kg; Height 5 ft. bm8 11 in. ; Pain 4/10; 05:43 BP 132 / 87; Pulse 78; Resp 18; Pulse Ox 95% on R/A; pc2 06:10 BP 119 / 71; Pulse 85; Resp 18; Pulse Ox 95% on R/A; Pain 4/10; pc2 06:56 BP 94 / 77; Pulse 81; Resp 20; Temp 97.7; Pulse Ox 95% ; Weight 81.5 kg; Pain 2/10; bm8 04:40 Body Mass Index 25.06 (81.50 kg, 180.34 cm) bm8 04:40 Pain Scale: Adult bm8 06:10 Pain Scale: Adult pc2 06:56 Pain Scale: Adult bm8 Vivi Coma Score: 04:48 Eye Response: spontaneous(4). Motor Response: obeys commands(6). Verbal Response: bm8 oriented(5). Total: 15. 05:01 Eye Response: spontaneous(4). Motor Response: obeys commands(6). Verbal Response: claude oriented(5). Total: 15. 06:33 Eye Response: spontaneous(4). Motor Response: obeys commands(6). Verbal Response: bm8 oriented(5). Total: 15. 06:56 Eye Response: spontaneous(4). Motor Response: obeys commands(6). Verbal Response: bm8 oriented(5). Total: 15. ED Course: 04:37 Patient arrived in ED. [email or web address] 04:47 Hilario oGetz MD is Attending Physician. claude 04:48 Patient has correct armband on for positive identification. Placed in gown. Bed in low bm8 position. Call light in reach. Side rails up X 1. Client placed on continuous cardiac and pulse oximetry monitoring. NIBP monitoring applied. fabrication engineer on. Pulse ox on. NIBP on. Door closed. Noise minimized. Verbal reassurance given. Head of bed elevated. 04:48 No provider procedures requiring assistance completed. bm8 04:55 Sammi martinez, RN is Primary Nurse. pc2 05:06 Triage completed. vc1 05:12 Arm band placed on right wrist. bm8 05:12 Initial lab(s) drawn, by ED staff, sent to lab. Inserted saline lock: 20 gauge in right bm8 antecubital area, using aseptic technique. Blood collected. 05:26 X-ray(s) taken. pc2 05:36 XRAY Chest (1 view) In Process Unspecified. EDMS 05:46 Initiated transfer with Haydee at [facility]. rv1 05:48 Emigdio Jamison MD is Referral Physician. claude 06:00 Inserted saline lock: 18 gauge in left antecubital area, using aseptic technique. Blood pc2 collected. 06:01 Lactate w/ 2H reflex if indic. Sent. pc2 06:01 Blood Culture Adult (2) Sent. pc2 06:08 Repeat lab(s) drawn. by me, sent to lab. Troponin HS. pc2 06:[address] via stretcher. pc2 06:20 CT Chest For PE Angio In Process Unspecified. EDMS 06:[address] Hook to [facility] rm [id number]. rv1 06:33 Provided Education on: need for transfer due to NSTEMI diagnosis. bm8 06:47 Notified ED physician of a critical lab result(s). Troponin 2985.8. pc2 06:53 Patient transferred, IV remains in place. bm8 07:09 Brenden Jefferson, RN is Primary Nurse. bm8 Administered Medications: 05:10 Drug: NS 0.9% IV 1000 ml IV at 1 bolus Per protocol; 1000 mL bolus Route: IV; Rate: 1 bm8 bolus; Site: right antecubital; 05:40 Follow up: Response: No adverse reaction; IV Status: Completed infusion; IV Intake: pc2 1000ml 05:10 Drug: GI Cocktail without - (Maalox PO 30 ml, Lidocaine Mucous Membrane 2 % 15 bm8 ml) PO once Route: PO; 05:50 Follow up: Response: No adverse reaction pc2 05:10 Drug: Famotidine IVP 20 mg IVP once; dilute with 10 mL 0.9% NaCl; give over 2 minutes bm8 Route: IVP; Site: right antecubital; 05:50 Follow up: Response: No adverse reaction pc2 05:11 Not Given (Patient Refused): aspirinchewable tablet 81 mg PO once bm8 05:55 Drug: Clopidogrel PO 300 mg PO once Route: PO; pc2 06:35 Follow up: Response: No adverse reaction pc2 05:55 Drug: Aspirin PO Chewable Tablet 324 mg PO once; 81 mg tablets x 4 Route: PO; pc2 06:34 Follow up: Response: No adverse reaction pc2 05:57 Drug: Ondansetron IVP 4 mg IVP once; over 2 minutes Route: IVP; Site: right antecubital;pc2 06:33 Follow up: Response: No adverse reaction pc2 06:54 Follow up: Response: No adverse reaction bm8 05:58 Drug: morphine IVP or IV 2 mg IVP once over 4 mins Route: IVP; Infused Over: 4 mins; pc2 Site: right antecubital; 06:34 Follow up: Response: No adverse reaction; Pain is decreased; RASS: Alert and Calm (0) pc2 06:54 Follow up: Response: No adverse reaction bm8 06:00 Drug: levofloxacin IVPB 750 mg 150 ml IVPB once over 90 mins Volume: 150 ml; Route: pc2 IVPB; Infused Over: 90 mins; Site: right antecubital; 06:34 Follow up: Response: No adverse reaction pc2 06:55 Follow up: Response: No adverse reaction; IV Status: Infusion continued upon transfer; bm8 IV Intake: 150ml 06:30 Drug: Heparin (MO-Bolus No thrombolytic) - HEParin IVP 60 units/kg IVP once; Max 5000 bm8 units {Co-Signature: pc2 (Sammi martinez RN).} Route: IVP; Site: left antecubital; 06:56 Follow up: Response: No adverse reaction bm8 06:31 Drug: Heparin (MO Drip) 12 units/kg/[place] - ([place] [address] units, D5W IV 500 ml) IV at bm8 calculated rate Per protocol; Max initial rate 1000 units/hr {Co-Signature: pc2 (Sammi martinez RN).} Route: IV; Rate: calculated rate; Site: left antecubital; 06:55 Follow up: Response: No adverse reaction; IV Status: Infusion continued upon transfer bm8 06:55 Not Given (Pt declinedd): morphineor iv 2 mg IVP once over 4 mins bm8 Medication: 04:48 VIS not applicable for this client. bm8 Intake: 05:40 IV: 1000ml; Total: 1000ml. pc2 06:55 IV: 150ml; Total: 1150ml. bm8 Outcome: 05:48 Discharge ordered by . claude 05:49 ER care complete, transfer ordered by . claude 07:09 Transferred by ground EMS . to [facility], Transfer form ko1 completed. X-rays sent w/ patient. 07:09 Condition: stable 07:09 Instructed on the need for transfer, 07:09 Transferred bm8 07:16 Patient left the ED. ko1 Signatures: Dispatcher [employer] EDMS Hilario Goetz MD MD cha Jeffries, Jennifer jj6 Nicci Diaz RN RN vc1 Mercedes Cote RN RN ko1 Rosa Isela Nuñez rv1 Brenden Jefferson RN RN bm8 Sammi martinez, RN RN pc2 Sammi martinez RN pc2 Corrections: (The following items were deleted from the chart) 06:05 04:40 BP 122 / 81; Pulse 93bpm; Resp 20bpm; Pulse Ox 95%; Temp 98.8F; 83.91 kg; Height bm8 5 ft. 11 in.; BMI: 25.8; Pain 4/10, Adult; vc1 06:14 06:10 BP 119 / 71; Pulse 85bpm; Resp 18bpm; Pulse Ox 95% RA; pc2 pc2
--- NOTE | 2023-12-10 05:50 | EDPHYS ---
Physician Documentation [facility] Name: Srinivas Alfaro Age: 33 yrs Sex: Male : 1990 Arrival Date: 12/10/2023 Time: 04:36 Bed 3 Private MD: ED Physician Hilario Goetz HPI: 12/09 04:57 This 33 yrs old Male presents to ER via Unassigned with complaints of claude Breathing Difficulty, Chest Pain. 04:57 The patient has shortness of breath at rest, with light activity. Onset: The claude symptoms/episode began/occurred just prior to arrival. Duration: The symptoms are continuous, but are steadily getting better. The patient's shortness of breath has no apparent modifying factors. Associated signs and symptoms: The patient has no apparent associated signs or symptoms. Severity of symptoms: At their worst the symptoms were mild moderate in the emergency department the symptoms are unchanged. The patient has not experienced similar symptoms in the past. Historical: - Allergies: 04:48 No Known Allergies; bm8 - Home Meds: 04:48 None [Active]; bm8 - PMHx: 04:48 None; bm8 - PSHx: 04:48 None; bm8 - Immunization history:: Adult Immunizations unknown. - Infectious Disease History:: Denies. - Social history:: Smoking status: Patient denies any tobacco usage or history of. ROS: 05:01 Constitutional: Negative for fever, chills, and weight loss, Eyes: Negative for injury, claude pain, redness, and discharge, ENT: Negative for injury, pain, and discharge, Neck: Negative for injury, pain, and swelling, Respiratory: Negative for shortness of breath, cough, wheezing, and pleuritic chest pain, Abdomen/GI: Negative for abdominal pain, nausea, vomiting, diarrhea, and constipation, Back: Negative for injury and pain, : Negative for injury, bleeding, discharge, and swelling, MS/Extremity: Negative for injury and deformity, Skin: Negative for injury, rash, and discoloration, Neuro: Negative for headache, weakness, numbness, tingling, and seizure, Psych: Negative for depression, anxiety, suicide ideation, homicidal ideation, and hallucinations, Allergy/Immunology: Negative for hives, rash, and allergies, Endocrine: Negative for neck swelling, polydipsia, polyuria, polyphagia, and marked weight changes, Hematologic/Lymphatic: Negative for swollen nodes, abnormal bleeding, and unusual bruising, 05:01 Cardiovascular: Positive for chest pain, with cough, Exam: 05:01 Constitutional: This is a well developed, well nourished patient who is awake, alert, claude and in no acute distress. Head/Face: Normocephalic, atraumatic. Eyes: Pupils equal round and reactive to light, extra-ocular motions intact. Lids and lashes normal. Conjunctiva and sclera are non-icteric and not injected. Cornea within normal limits. Periorbital areas with no swelling, redness, or edema. ENT: Nares patent. No nasal discharge, no septal abnormalities noted. Tympanic membranes are normal and external auditory canals are clear. Oropharynx with no redness, swelling, or masses, exudates, or evidence of obstruction, uvula midline. Mucous membranes moist. Neck: Trachea midline, no thyromegaly or masses palpated, and no cervical lymphadenopathy. Supple, full range of motion without nuchal rigidity, or vertebral point tenderness. No Meningismus. Chest/axilla: Normal chest wall appearance and motion. Nontender with no deformity. No lesions are appreciated. Cardiovascular: Regular rate and rhythm with a normal S1 and S2. No gallops, murmurs, or rubs. Normal PMI, no JVD. No pulse deficits. Respiratory: Lungs have equal breath sounds bilaterally, clear to auscultation and percussion. No rales, rhonchi or wheezes noted. No increased work of breathing, no retractions or nasal flaring. Abdomen/GI: Soft, non-tender, with normal bowel sounds. No distension or tympany. No guarding or rebound. No evidence of tenderness throughout. Back: No spinal tenderness. No costovertebral tenderness. Full range of motion. Male : Normal genitalia with no discharge or lesions. Skin: Warm, dry with normal turgor. Normal color with no rashes, no lesions, and no evidence of cellulitis. MS/ Extremity: Pulses equal, no cyanosis. Neurovascular intact. Full, normal range of motion. Neuro: Awake and alert, GCS 15, oriented to person, place, time, and situation. Cranial nerves II-XII grossly intact. Motor strength 5/5 in all extremities. Sensory grossly intact. Cerebellar exam normal. Normal gait. Psych: Awake, alert, with orientation to person, place and time. Behavior, mood, and affect are within normal limits. 05:01 ECG was reviewed by the Attending Physician. 05:14 Cardiovascular: Rate: normal, actual rate is 93 bpm, Rhythm: regular, Pulses: Pulses claude are 4+ in bilateral radial, brachial, femoral, popliteal, posterior tibial and and dorsalis pedis arteries.. Heart sounds: normal, normal S1and S2, no S3 or S4, no murmur, no rub, no gallop, Edema: is not appreciated, JVD: is not appreciated, 05:14 Musculoskeletal/extremity: DVT Exam: No signs of deep vein thrombosis. no pain, no swelling, no tenderness, negative Homans' sign noted on exam, no appreciated bluish discoloration, no erythema, no increased warmth, Vital Signs: 04:40 BP 122 / 81; Pulse 93; Resp 20; Temp 98.8; Pulse Ox 95% ; Weight 81.5 kg; Height 5 ft. bm8 11 in. ; Pain 4/10; 05:43 BP 132 / 87; Pulse 78; Resp 18; Pulse Ox 95% on R/A; pc2 06:10 BP 119 / 71; Pulse 85; Resp 18; Pulse Ox 95% on R/A; Pain 4/10; pc2 06:56 BP 94 / 77; Pulse 81; Resp 20; Temp 97.7; Pulse Ox 95% ; Weight 81.5 kg; Pain 2/10; bm8 04:40 Body Mass Index 25.06 (81.50 kg, 180.34 cm) bm8 04:40 Pain Scale: Adult bm8 06:10 Pain Scale: Adult pc2 06:56 Pain Scale: Adult bm8 Vivi Coma Score: 04:48 Eye Response: spontaneous(4). Motor Response: obeys commands(6). Verbal Response: bm8 oriented(5). Total: 15. 05:01 Eye Response: spontaneous(4). Motor Response: obeys commands(6). Verbal Response: claude oriented(5). Total: 15. 06:33 Eye Response: spontaneous(4). Motor Response: obeys commands(6). Verbal Response: bm8 oriented(5). Total: 15. 06:56 Eye Response: spontaneous(4). Motor Response: obeys commands(6). Verbal Response: bm8 oriented(5). Total: 15. MDM: 04:47 Patient medically screened. [facility] 05:15 Differential diagnosis: Anemia Anxiety Reaction Bronchitis abnormal EKG, acute claude myocardial infarction, acute pericarditis, anxiety, coronary artery disease chest wall pain, Cholelithiasis costochondritis, esophagitis, hiatal hernia, pancreatitis, pneumonia, pulmonary embolus, stable angina, Myocardial Infarction Pneumothorax pulmonary edema, Pulmonary Embolism reactive airway disease, Unstable Angina. Antibiotic administration: Not indicated. HEART Score: History: Slightly Suspicious (0), ECG: Normal (0), Age: < or = 45 years (0), Risk Factors: No Risk Factors Known (0), Troponin: < or = 1 x Normal Limit (0). VANDANA Risk Score: TOTAL SCORE = 0. Immunization status:. Data reviewed: vital signs, nurses notes, lab test result(s), EKG, radiologic studies, CT scan. Consideration of Admission/Observation Escalation of care including admission/observation considered. I considered the following discharge prescriptions or medication management in the emergency department Medications were administered in the Emergency Department. See MAR. Independent interpretation of the following test(s) in the Emergency Department EKG: See my EKG interpretation above. Test considered but Not performed: Ultrasound no 2 d echo. 12/09 04:49 Order name: Basic Metabolic Panel; Complete Time: 05:51 [facility] 12/09 04:49 Order name: CBC with Diff; Complete Time: 05:38 12/09 04:49 Order name: LFT's; Complete Time: 05:51 12/09 04:49 Order name: Magnesium; Complete Time: 05:51 12/09 04:49 Order name: NT PRO-BNP; Complete Time: 05:52 12/09 04:49 Order name: PT-INR; Complete Time: 05:38 12/09 04:49 Order name: Troponin HS; Complete Time: 05:51 [facility] 12/09 05:03 Order name: Troponin HS: 6am; Complete Time: 06:52 [facility] 12/09 05:47 Order name: Blood Culture Adult (2) 12/09 05:47 Order name: Lactate w/ 2H reflex if indic.; Complete Time: 06:32 [facility] 12/09 04:49 Order name: XRAY Chest (1 view) [facility] 12/09 04:49 Order name: CT Chest For PE Angio 12/09 05:03 Order name: EKG; Complete Time: 05:04 [facility] 12/09 04:49 Order name: Cardiac monitoring; Complete Time: 05:02 [facility] 12/09 04:49 Order name: EKG - Nurse/Tech; Complete Time: 05:02 [facility] 12/09 04:49 Order name: IV Saline Lock; Complete Time: 05:02 [facility] 12/09 04:49 Order name: Labs collected and sent; Complete Time: 05:02 [facility] 12/09 04:49 Order name: O2 Per Protocol; Complete Time: 05:02 [facility] 12/09 04:49 Order name: O2 Sat Monitoring; Complete Time: 05:02 [facility] 12/09 05:03 Order name: EKG - Nurse/Tech; Complete Time: 05:10 [facility] EC:01 Rate is 92 beats/min. Rhythm is regular. QRS Amo is Normal. WI interval is normal. QRS claude interval is normal. QT interval is normal. No Q waves. T waves are Normal. No ST changes noted. Clinical impression: NSR w/ Non-specific ST/T Changes and No evidence of ischemia. Interpreted by me. Reviewed by me. Administered Medications: 05:10 Drug: NS 0.9% IV 1000 ml IV at 1 bolus Per protocol; 1000 mL bolus Route: IV; Rate: 1 bm8 bolus; Site: right antecubital; 05:40 Follow up: Response: No adverse reaction; IV Status: Completed infusion; IV Intake: pc2 1000ml 05:10 Drug: GI Cocktail without - (Maalox PO 30 ml, Lidocaine Mucous Membrane 2 % 15 bm8 ml) PO once Route: PO; 05:50 Follow up: Response: No adverse reaction pc2 05:10 Drug: Famotidine IVP 20 mg IVP once; dilute with 10 mL 0.9% NaCl; give over 2 minutes bm8 Route: IVP; Site: right antecubital; 05:50 Follow up: Response: No adverse reaction pc2 05:11 Not Given (Patient Refused): aspirinchewable tablet 81 mg PO once bm8 05:55 Drug: Clopidogrel PO 300 mg PO once Route: PO; pc2 06:35 Follow up: Response: No adverse reaction pc2 05:55 Drug: Aspirin PO Chewable Tablet 324 mg PO once; 81 mg tablets x 4 Route: PO; pc2 06:34 Follow up: Response: No adverse reaction pc2 05:57 Drug: Ondansetron IVP 4 mg IVP once; over 2 minutes Route: IVP; Site: right antecubital;pc2 06:33 Follow up: Response: No adverse reaction pc2 06:54 Follow up: Response: No adverse reaction bm8 05:58 Drug: morphine IVP or IV 2 mg IVP once over 4 mins Route: IVP; Infused Over: 4 mins; pc2 Site: right antecubital; 06:34 Follow up: Response: No adverse reaction; Pain is decreased; RASS: Alert and Calm (0) pc2 06:54 Follow up: Response: No adverse reaction bm8 06:00 Drug: levofloxacin IVPB 750 mg 150 ml IVPB once over 90 mins Volume: 150 ml; Route: pc2 IVPB; Infused Over: 90 mins; Site: right antecubital; 06:34 Follow up: Response: No adverse reaction pc2 06:55 Follow up: Response: No adverse reaction; IV Status: Infusion continued upon transfer; bm8 IV Intake: 150ml 06:30 Drug: Heparin (SC-Bolus No thrombolytic) - HEParin IVP 60 units/kg IVP once; Max 5000 bm8 units {Co-Signature: pc2 (Sammi martinez RN).} Route: IVP; Site: left antecubital; 06:56 Follow up: Response: No adverse reaction bm8 06:31 Drug: Heparin (SC Drip) 12 units/kg/hr - ([place] [address] units, D5W IV 500 ml) IV at bm8 calculated rate Per protocol; Max initial rate 1000 units/hr {Co-Signature: pc2 (Sammi martinez RN).} Route: IV; Rate: calculated rate; Site: left antecubital; 06:55 Follow up: Response: No adverse reaction; IV Status: Infusion continued upon transfer bm8 06:55 Not Given (Pt declinedd): morphineor iv 2 mg IVP once over 4 mins bm8 Disposition Summary: 12/10/23 05:49 Transfer Ordered Notes: Transfer Location: [facility] claude Reason: Higher level of care claude Condition: Fair(12/10/23 05:49) claude Problem: new(12/10/23 05:49) claude Symptoms: have improved(12/10/23 05:49) claude Accepting Physician: to [facility](12/10/23 07:16) ko1 Diagnosis - Chest pain on breathing(12/10/23 05:49) claude - Non ST elevation SC claude - Pneumonia due to other specified bacteria - left lower lobe claude - Hypokalemia claude Forms: - Medication Reconciliation Form claude - SBAR form claude Signatures: Dispatcher [employer] EDMS Hilario Goetz MD MD cha Oliver, Kathy, RN RN ko1 Brenden Jefferson RN RN bm8 Sammi martinez, RN RN pc2 Sammi martinez RN pc2 Corrections: (The following items were deleted from the chart) 04:50 04:50 BASIC METABOLIC PANEL+C.LAB.BRZ ordered. EDMS EDMS 04:50 04:50 CBC+H.LAB.BRZ ordered. EDMS EDMS 04:50 04:50 HEPATIC FUNCTION+C.LAB.BRZ ordered. EDMS EDMS 04:50 04:50 MAGNESIUM+C.LAB.BRZ ordered. EDMS EDMS 04:50 04:50 PROBNP+C.LAB.BRZ ordered. EDMS EDMS 04:50 04:50 PROTIME (+INR)+COAG.LAB.BRZ ordered. EDMS EDMS 04:50 04:50 Troponin High Sensitivity+C.LAB.BRZ ordered. EDMS EDMS 04:50 04:50 URINE DRUG SCREEN+UC.LAB.BRZ ordered. EDMS EDMS 04:50 04:50 Chest Single View+RAD.RAD.BRZ ordered. EDMS EDMS 04:50 04:50 Chest For PE Angio+CT.RAD.BRZ ordered. EDMS EDMS 05:48 05:47 BLOOD CULTURE*+BA.LAB.BRZ ordered. EDMS EDMS 05:48 05:47 LACTATE+C.LAB.BRZ ordered. EDMS EDMS 05:48 05:48 Home claude claude 05:48 05:48 new claude claude 05:48 05:48 have improved claude claude 05:48 05:48 Stable claude claude 05:48 05:48 Chest pain on breathing claude claude 05:48 05:48 Chest pain, unspecified claude claude 05:53 05:49 to [facility] claude claude 07:16 05:53 to [facility] claude ko1
[2023-12-10] MEDS ORDERED: MORPHINE 2 MG/ML SYR ONE (05:53)
[2023-12-10] MEDS ORDERED: ONDANSETRON 4 MG/2 ML VIAL ONE (05:53)
[2023-12-10] MEDS ORDERED: Levofloxacin 750mg IV 750 MG/150 ML BAG IV ONE (05:54)
[2023-12-10 07:33] VITALS: BP 94/77; TEMP 97.7; O2SAT 95
--- NOTE | 2023-12-10 08:36 | RAD REPORT ---
EXAM DESCRIPTION: CT - Chest For Pe Angio - 12/10/2023 6:19 am CLINICAL HISTORY: CHEST PAIN COMPARISON: Chest Single View dated 12/10/2023 TECHNIQUE: Thin axial CT images of the chest were obtained following administration of iodinated co ntrast intravenously. Multiplanar reconstructions, and maximum intensity projection reconstructions w ere generated and reviewed. Exam utilizes a protocol for optimal evaluation of pulmonary arterial seferino e. All CT scans are performed using dose optimization technique as appropriate and may include automated exposure control or mA/KV adjustment according to patient size. FINDINGS: Pulmonary arteries are normal. No emboli or other suspicious finding. No acute or signific ant aorta findings. Patchy alveolar opacities throughout the left lower lobe, partially sparing the upper segment. No ple ural thickening or pleural effusion. No pneumothorax. No abnormal mediastinal or hilar masses or lymphadenopathy seen. No chest wall mass or abnormal axill iary lymphadenopathy. IMPRESSION: No evidence of acute central pulmonary emboli. Patchy alveolar opacities throughout the left lower lobe, concerning for pneumonia.
--- NOTE | 2023-12-11 12:34 | RAD REPORT ---
EXAM DESCRIPTION: RAD - Chest Single View - 12/10/2023 5:35 am CLINICAL HISTORY: Male, 33 years old, Chest pain;Dyspnea TECHNIQUE: 1 view COMPARISON: None. FINDINGS: SUPPORT DEVICES: None. LUNGS/PLEURA: Patchy left basilar airspace disease. No evident pleural effusion or pneumothorax. HEART/MEDIASTINUM: Normal size and configuration. OTHER: No acute osseous findings. IMPRESSION: Left basilar airspace disease consistent with pneumonia in the proper clinical setting. Electronically signed by: Karl Cuellar MD 12/10/2023 05:58 AM CDT RP Due to temporary technical issues with the PACS/Fluency reporting system, reports are being signed by the in house radiologist without review as a courtesy to ensure prompt reporting. The interpreting r adiologist is fully responsible for the content of the report.
--- NOTE | 2023-12-12 14:20 | EKG ---
Test Date: 2023-12-10 Test Time: 05:30:44 Relocation Coordinator: DEEP MEASUREMENT RESULTS: Intervals: Rate: 80 SD: 140 QRSD: 110 QT: 346 QTc: 399 [place]: P: 48 SD: 140 QRS: 34 T: -3 INTERPRETIVE STATEMENTS: Normal sinus rhythm Normal ECG Compared to ECG 12/10/2023 05:29:48 ST (T wave) deviation no longer present Myocardial infarct finding no longer present Electronically Signed On 12-12-23 14:15:25 CDT by Emigdio Jamison
--- NOTE | 2023-12-12 14:20 | EKG ---
Test Date: 2023-12-10 Test Time: 04:58:53 Missile Control Pilot: DEEP MEASUREMENT RESULTS: Intervals: Rate: 92 WV: 146 QRSD: 108 QT: 346 QTc: 427 [place]: P: 63 WV: 146 QRS: 23 T: 12 INTERPRETIVE STATEMENTS: Normal sinus rhythm Normal ECG Compared to ECG 07/27/2022 00:38:32 Sinus arrhythmia no longer present Electronically Signed On 12-12-23 14:15:34 CDT by Emigdio Jamison
--- NOTE | 2023-12-12 14:20 | EKG ---
Test Date: 2023-12-10 Test Time: 05:29:48 Lean Specialist: DEEP MEASUREMENT RESULTS: Intervals: Rate: 84 MN: 142 QRSD: 114 QT: 348 QTc: 411 [place]: P: 45 MN: 142 QRS: 35 T: 2 INTERPRETIVE STATEMENTS: Normal sinus rhythm ST elevation, consider lateral injury or acute infarct ACUTE [place] / STEMI Abnormal ECG Compared to ECG 12/10/2023 04:58:53 ST (T wave) deviation now present Myocardial infarct finding now present Electronically Signed On 12-12-23 14:15:33 CDT by Emigdio Jamison
== END 2023-12-10 07:16 | disposition short-term general hospital (02) ==
LOC: ER 04:36
DX: I21.4 Non-ST elevation (NSTEMI) myocardial infarction (principal); J15.8 Pneumonia due to other specified bacteria; E87.6 Hypokalemia
CPT/HCPCS: 87040 ×2; 85025; 80048; 36415; 83735; 85610; 80076; 83605; 84484 ×2; 83880; 71275; 71045; Q9967; J1644; J2270; J2405; J7030; 93005; 99285

== ENCOUNTER 2024-02-02 21:28 | Emergency (ER) | payer BC ==
[2024-02-02 22:42] LABS: Absolute Eosinophils 0.2 K/uL (0-0.5); Absolute Lymphocytes (CBC) 2.3 K/uL (0.7-4.9); Absolute Monocytes 0.5 K/uL (0.1-1.3); Absolute Neutrophil 4.5 K/uL (1.8-8.0); Basophils % 0.5 % (0-1.3); Eosinophils % 2.4 % (0-4.4); Hematocrit 42.6 % (39.6-49.0); Hemoglobin 14.5 g/dL (13.6-17.9); Lymphocytes % 30.4 % (15.3-44.8); MCH 30.1 pg (27.0-35.0); MCHC 33.9 g/dL (32.0-36.0); MCV 88.7 fL (80-100); Monocytes % 6.1 % (3.3-12.3); Neutrophils % 60.6 % (41.7-73.7); Nucleated Red Blood Cells % 0.1 % (0-0); Platelets 165 thou/uL (152-406); RBC Red Blood Cell Count 4.81 M/uL (4.33-5.43); Red Cell Distribution Width 13.8 % (12.1-15.2)
[2024-02-02 22:47] LABS: PT Prothrombin Time 10.8 SECONDS (9.4-12.5); Protime INR 0.96
[2024-02-02 22:49] LABS: Albumin 3.8 g/dL (3.4-5.0); Albumin/Globulin Ratio 1.2 (1.1-1.8); Anion Gap 10.8 mEq/L (5.0-15.0); Bilirubin Direct 0.2 mg/dL (0-0.2); Bilirubin Indirect, Calculated 0.5 mg/dL (0.2-0.8); Bilirubin Total 0.7 mg/dL (0.2-1.0); Globulin 3.2 g/dL (2.3-3.5); Magnesium 2.2 mg/dL (1.6-2.4); Potassium 3.8 mEq/L (3.5-5.1); Troponin High Sensitivity 16.7 pg/mL (<58.9)
--- NOTE | 2024-02-02 22:57 | RAD REPORT ---
EXAM DESCRIPTION: RADChest Single View02/02/2024 10:14 pm CLINICAL HISTORY: CHEST PAIN COMPARISON: Chest Single View dated 12/10/2023 TECHNIQUE: Portable AP view of the chest. FINDINGS: The lungs are clear. No pneumothorax or effusion. The cardiomediastinal contours are unre markable. IMPRESSION: No acute cardiopulmonary process.
--- NOTE | 2024-02-02 23:03 | ER ---
Nurse's Notes [facility] Name: Srinivas Alfaro Age: 33 yrs Sex: Male : 1990 Arrival Date: 02/02/2024 Time: 21:28 Bed 16 Private MD: Diagnosis: Chest pain, unspecified Presentation: 02/01 21:33 Chief complaint: Patient states: left sided chest tightness since 10 minutes ago. kj2 Coronavirus screen: At this time, the client does not indicate any symptoms associated with coronavirus-19. Ebola Screen: No symptoms or risks identified at this time. Initial Sepsis Screen: Does the patient meet any 2 criteria? No. Patient's initial sepsis screen is negative. Does the patient have a suspected source of infection? No. Patient's initial sepsis screen is negative. Risk Assessment: Do you want to hurt yourself or someone else? Patient reports no desire to harm self or others. Onset of symptoms was February 02, 2024. 21:33 Method Of Arrival: Ambulatory kj2 21:42 Acuity: JANAY 2 kj2 Triage Assessment: 21:34 General: Appears uncomfortable, Behavior is calm, cooperative. Cardiovascular: Reports kj2 chest pain, Patient's skin is warm and dry. Chest pain is denied. Respiratory: Airway is patent Respiratory effort is unlabored, Respiratory pattern is regular. 21:36 Cardiovascular: Reports chest pain. kj2 Historical: - Allergies: 21:39 No Known Allergies; kj2 - Home Meds: 21:39 sertraline oral [Active]; kj2 - PMHx: 21:39 Anxiety; Myocarditis; kj2 - Immunization history:: Adult Immunizations unknown. - Infectious Disease History:: Denies. - Social history:: Smoking status: Patient denies any tobacco usage or history of. Screenin:50 [facility] ED Fall Risk Assessment (Adult) History of falling in the last 3 months, rg5 including since admission No falls in past 3 months (0 pts) Confusion or Disorientation No (0 pts) Intoxicated or Sedated No (0 pts) Impaired Gait No (0 pts) Mobility Assist Device Used No (0 pt) Altered Elimination No (0 pt) Score/Fall Risk Level 0 - 2 = Low Risk Oriented to surroundings, Maintained a safe environment, Hourly rounding (assess needs \T\ fall precautionary measures) done. Abuse screen: Denies threats or abuse. Denies injuries from another. Nutritional screening: No deficits noted. Tuberculosis screening: No symptoms or risk factors identified. Assessment: 21:50 General: Appears in no apparent distress. comfortable, Behavior is calm, cooperative, rg5 appropriate for age. 21:50 Pain: Denies pain. Complains of pain in chest Pain does not radiate. Pain currently is rg5 0 out of 10 on a pain scale. Quality of pain is described as thightness Pain began 1 hour ago. Neuro: Level of Consciousness is awake, alert, obeys commands, Oriented to person, place, time, situation. Cardiovascular: Reports chest thightness. Cardiovascular: Rhythm is sinus rhythm. Respiratory: Airway is patent Trachea midline Respiratory effort is even, unlabored, Respiratory pattern is regular, symmetrical. GI: Abdomen is round non-distended, Abd is soft and non tender. : No signs and/or symptoms were reported regarding the genitourinary system. EENT: No deficits noted. Derm: Skin is intact, Skin is dry, Skin is normal, Skin temperature is warm. Musculoskeletal: Range of motion: intact in all extremities. 23:00 Reassessment: Patient and/or family updated on plan of care and expected duration. Pain rg5 level reassessed. Patient is alert, oriented x 3, equal unlabored respirations, skin warm/dry/pink. Patient denies pain at this time. Patient states feeling better. Vital Signs: 21:36 BP 134 / 87; Pulse 78; Pulse Ox 98% on R/A; Weight 86.18 kg; Height 5 ft. 11 in. ; Pain kj2 2/10; 21:36 Temp 98.7(O); kj2 21:50 BP 130 / 76; Pulse 74; Resp 17; Temp 98; Pulse Ox 97% on R/A; Pain 0/10; rg5 22:45 BP 109 / 68; Pulse 74; Resp 17; Pulse Ox 97% on R/A; Pain 0/10; rg5 21:36 Body Mass Index 26.50 (86.18 kg, 180.34 cm) kj2 21:36 Pain Scale: Adult kj2 21:50 Pain Scale: Adult rg5 22:45 Pain Scale: Adult rg5 [place] Coma Score: 21:50 Eye Response: spontaneous(4). Motor Response: obeys commands(6). Verbal Response: rg5 oriented(5). Total: 15. ED Course: 21:29 Patient arrived in ED. im 21:31 Joyce Jasmine PA-C is PHCP. sb4 21:31 Andrzej Brice MD is Attending Physician. sb4 21:41 Arm band placed on Patient placed in an exam room, on a stretcher. EKG completed in kj2 triage. Results shown to MD. 21:41 EKG done, by ED staff, reviewed by Joyce Jasmine PA-C. kj2 21:42 Triage completed. kj2 21:50 Patient has correct armband on for positive identification. Bed in low position. Call rg5 light in reach. Side rails up X 1. recreation teacher on. Pulse ox on. Door closed. Noise minimized. Pillow given. 21:50 No provider procedures requiring assistance completed. Inserted saline lock: 20 gauge rg5 in left antecubital area, using aseptic technique. Blood collected. Flushed with 10 mL NS. Patient maintains SpO2 saturation greater than 95% on room air. 21:54 Tu Dhillon, RN is Primary Nurse. rg5 22:15 XRAY Chest (1 view) In Process Unspecified. EDMS 23:36 Provided Education on: post er care. rg5 23:36 IV discontinued. rg5 Administered Medications: No medications were administered Medication: 21:50 VIS not applicable for this client. rg5 Outcome: 23:02 Discharge ordered by . sb4 23:35 Discharged to home ambulatory, rg5 23:35 Condition: stable 23:35 Discharge instructions given to patient, Instructed on discharge instructions, follow up and referral plans. Demonstrated understanding of instructions, 23:36 Patient left the ED. rg5 Signatures: Dispatcher [employer] EDMS Joyce Jasmine PA-C PA-C sb4 Lyn Lincoln Tu Dhillon, RN RN rg5 Nicole Storm, RN RN kj2 Corrections: (The following items were deleted from the chart) 21:39 21:33 Chief complaint: Patient states: chest tightness since 10 minutes ago kj2 kj2 21:41 21:39 Home Meds: None; kj2 kj2
--- NOTE | 2024-02-02 23:03 | EDPHYS ---
Physician Documentation [facility] Name: Srinivas Alfaro Age: 33 yrs Sex: Male : 1990 Arrival Date: 02/02/2024 Time: 21:28 Bed 16 Private MD: ED Physician Andrzej Brice HPI: 02/01 22:03 This 33 yrs old Male presents to ER via Ambulatory with complaints of Chest Tightness. sb4 Historical: - Allergies: 21:39 No Known Allergies; kj2 - Home Meds: 21:39 sertraline oral [Active]; kj2 - PMHx: 21:39 Anxiety; Myocarditis; kj2 - Immunization history:: Adult Immunizations unknown. - Infectious Disease History:: Denies. - Social history:: Smoking status: Patient denies any tobacco usage or history of. ROS: 23:01 Constitutional: Negative for fever, chills, and weight loss, sb4 23:01 Cardiovascular: Positive for chest pain, 23:01 All other systems are negative, Exam: 23:01 Constitutional: This is a well developed, well nourished patient who is awake, alert, sb4 and in no acute distress. Head/Face: Normocephalic, atraumatic. Eyes: Extra-ocular motions intact. Periorbital areas with no swelling, redness, or edema. ENT: Mucous membranes moist. Cardiovascular: Regular rate and rhythm with a normal S1 and S2. Respiratory: Lungs have equal breath sounds bilaterally, clear to auscultation and percussion. No rales, rhonchi or wheezes noted. No increased work of breathing, no retractions or nasal flaring. Abdomen/GI: Soft, non-tender, no distension. Skin: Warm, dry with normal turgor. Normal color with no rashes, no lesions, and no evidence of cellulitis. MS/ Extremity: Pulses equal, no cyanosis. Neurovascular intact. Full, normal range of motion. Neuro: Awake and alert, GCS 15, oriented to person, place, time, and situation. Motor strength 5/5 in all extremities. Sensory grossly intact. Vital Signs: 21:36 BP 134 / 87; Pulse 78; Pulse Ox 98% on R/A; Weight 86.18 kg; Height 5 ft. 11 in. ; Pain kj2 2/10; 21:36 Temp 98.7(O); kj2 21:50 BP 130 / 76; Pulse 74; Resp 17; Temp 98; Pulse Ox 97% on R/A; Pain 0/10; rg5 22:45 BP 109 / 68; Pulse 74; Resp 17; Pulse Ox 97% on R/A; Pain 0/10; rg5 21:36 Body Mass Index 26.50 (86.18 kg, 180.34 cm) kj2 21:36 Pain Scale: Adult kj2 21:50 Pain Scale: Adult rg5 22:45 Pain Scale: Adult rg5 Vivi Coma Score: 21:50 Eye Response: spontaneous(4). Motor Response: obeys commands(6). Verbal Response: rg5 oriented(5). Total: 15. MDM: 21:34 Patient medically screened. sb4 23:01 Data reviewed: vital signs, nurses notes, lab test result(s), EKG, radiologic studies, sb4 and as a result, I will discharge patient. Counseling: I had a detailed discussion with the patient and/or guardian regarding the historical points, exam findings, and any diagnostic results supporting the discharge/admit diagnosis, lab results, radiology results, to return to the emergency department if symptoms worsen or persist or if there are any questions or concerns that arise at home. 02/01 21:53 Order name: Basic Metabolic Panel; Complete Time: 22:50 sb4 02/01 21:53 Order name: CBC with Diff; Complete Time: 22:48 sb4 02/01 21:53 Order name: LFT's; Complete Time: 22:50 sb4 02/01 21:53 Order name: Magnesium; Complete Time: 22:50 sb4 02/01 21:53 Order name: NT PRO-BNP; Complete Time: 22:50 sb4 02/01 21:53 Order name: PT-INR; Complete Time: 22:48 sb4 02/01 21:53 Order name: Troponin HS; Complete Time: 22:50 sb4 02/01 21:53 Order name: XRAY Chest (1 view); Complete Time: 22:57 sb4 02/01 21:53 Order name: Cardiac monitoring; Complete Time: 22:11 sb4 02/01 21:53 Order name: EKG - Nurse/Tech; Complete Time: 22:11 sb4 02/01 21:53 Order name: IV Saline Lock; Complete Time: 22:11 sb4 02/01 21:53 Order name: Labs collected and sent; Complete Time: 22:11 sb4 02/01 21:53 Order name: O2 Per Protocol; Complete Time: 22:11 sb4 02/01 21:53 Order name: O2 Sat Monitoring; Complete Time: 22:11 sb4 EC:59 Rate is 80 beats/min. Rhythm is regular. WI interval is normal at 146 msec. QRS sb4 interval is normal at 112 msec. QT interval is normal at 370 msec. No Q waves. T waves are Normal. No ST changes noted. Clinical impression: No evidence of ischemia. Interpreted by me. Reviewed by me. Administered Medications: No medications were administered Disposition: 02/02 01:55 Co-signature as Attending Physician, Andrzej Brice MD I agree with the assessment sp4 and plan of care. I reviewed the patient's care provided by the Advanced Practice Provider and agree with the diagnosis and treatment plan. Disposition Summary: 02/02/24 23:02 Discharge Ordered Notes: Location: Home sb4 Problem: new sb4 Symptoms: have improved sb4 Condition: Stable sb4 Diagnosis - Chest pain, unspecified sb4 Followup: sb4 - With: Emergency Department - When: As needed - Reason: Trouble breathing, Worsening of condition Discharge Instructions: - Discharge Summary Sheet sb4 - Nonspecific Chest Pain, Adult, [id number] sb4 Forms: - Patient Portal Instructions sb4 - Leadership Thank You Letter sb4 Signatures: Dispatcher [employer] Joyce Valdes PA-C PA-C sb4 Andrzej Brice MD MD sp4 Nicole Storm, RN RN kj2 Corrections: (The following items were deleted from the chart) 02/01 21:41 21:39 Home Meds: None; kj2 kj2 21:54 21:54 BASIC METABOLIC PANEL+C.LAB.BRZ ordered. EDMA EDMS 21:54 21:54 CBC+H.LAB.BRZ ordered. EDMS EDMS 21:54 21:54 HEPATIC FUNCTION+C.LAB.BRZ ordered. EDMS EDMS 21:54 21:54 MAGNESIUM+C.LAB.BRZ ordered. EDMA EDMS 21:54 21:54 PROBNP+C.LAB.BRZ ordered. EDMS EDMS 21:54 21:54 PROTIME (+INR)+COAG.LAB.BRZ ordered. EDMS EDMS 21:54 Troponin High Sensitivity+C.LAB.BRZ ordered. EDMS EDMS 21:54 Chest Single View+RAD.RAD.BRZ ordered. EDMS EDMS
[2024-02-02 23:45] VITALS: TEMP 98; O2SAT 97
[2024-02-02 23:47] VITALS: BP 109/68
--- NOTE | 2024-02-03 13:27 | EKG ---
Test Date: 2024-02-02 Test Time: 21:38:30 Principal Examiner: RIVERA MEASUREMENT RESULTS: Intervals: Rate: 80 WV: 146 QRSD: 112 QT: 370 QTc: 426 [place]: P: 47 WV: 146 QRS: 53 T: -1 INTERPRETIVE STATEMENTS: Normal sinus rhythm Nonspecific T wave abnormality Abnormal ECG Compared to ECG 12/10/2023 05:30:44 T-wave abnormality now present Electronically Signed On 02-03-24 13:26:16 CDT by Max Cronin
== END 2024-02-02 23:36 | disposition home or self-care (01) ==
LOC: ER 21:28
DX: R07.9 Chest pain, unspecified (principal); F41.9 Anxiety disorder, unspecified; Z79.899 Other long term (current) drug therapy
CPT/HCPCS: 36415; 71045; 80048; 80076; 83735; 83880; 84484; 85025; 85610; 93005; 99284